=== PATIENT | female | born 1970 ===

== ENCOUNTER 2021-08-17 09:37 | Outpatient (CLI) | payer OTHER | END 2021-08-17 12:10 | disposition home or self-care (01) | LOC: SONOGRAMA 09:37 | PROVIDERS: ATTEND Pathology Anatomic Pathology & Clinical Pathology | DX: E04.2 Nontoxic multinodular goiter (principal) ==

== ENCOUNTER 2022-08-06 07:52 | Outpatient (CLI) | payer OTHER | END 2022-08-06 07:55 | disposition home or self-care (01) | LOC: SONOGRAMA 07:52 | PROVIDERS: ATTEND Pathology Anatomic Pathology & Clinical Pathology | DX: E04.2 Nontoxic multinodular goiter (principal); D34 Benign neoplasm of thyroid gland; E04.1 Nontoxic single thyroid nodule ==

== ENCOUNTER 2024-05-18 06:36 | Inpatient (IN) | payer OTHER ==
[~2024-05-18] VITALS: Ht 170.2 cm; Wt 83.9 kg
[~2024-05-18 06:36] MED LIST: ACTOS15 MG PO; CALTRATE 600 +1 EAC1 PO; CLONAZEPAM1 M1 PO; DESMOPRESSIN ACETATE 4 MCG/ML AMPUL IV NR; DESVENLAFAXINE100 MG PO; FARXIGA10 MG PO; PEPCID AC20 MG PO; PROTONIX20 MG PO; VITAMIN D310 MCG/1 M PO; WELLBUTRIN XL150 M1 PO
[2024-05-18] MEDS ORDERED: CLINDAMYCIN PHOSPHATE 150 MG/ML (600mg) IV SCH (13:45)
[2024-05-18] MEDS ORDERED: POVIDONE-IODINE SCRUB 118 ML BOTT TOP ONE (17:54)
[2024-05-18 21:21] LABS: ABG PH 7.343 (7.35-7.45)
[2024-05-18 21:22] LABS: ABG pCO2 49.5 mmHg (35-45); BASE EXCESS -0.1 mmol/l; BICARBONATE 26.3 mmol/l (23-25); SaO2 99.5 %; Tco2 27.8 mmol/l
[2024-05-18 21:23] LABS: allen test SATISFACTORY; o2 100 %; puncture site RADIAL RIGHT
[2024-05-18] MEDS ORDERED: METHYLPREDNISOLONE SOD SUCC 40 MG VIAL IV SCH (21:32)
[2024-05-18] MEDS ORDERED: RACEPINEPHRINE HCL 0.5 ML AMPUL IH SCH (21:35)
[2024-05-18] MEDS ORDERED: LEVALBUTEROL HCL 1.25 MG/3 ML SOLUTION IH SCH (21:38)
[2024-05-18] MEDS ORDERED: METHYLPREDNISOLONE SOD SUCC 40 MG VIAL ONE (22:27)
[2024-05-18] MEDS ORDERED: PROPOFOL 10,000 MCG/ML VIAL IV ONE (23:08)
[2024-05-18 23:12] LABS: HEMATOCRIT 39.8 % (36.0-45.00); HEMOGLOBIN 13.4 g/dL (12.0-15.00); MEAN CORPUSCULAR HEMOGLOBIN 29.4 pg (27.00-32.0); MEAN CORPUSCULAR HGB CONC 33.7 g/dl (32.0-36.0); PLATELET COUNT 193 K/uL (150-450); RED BLOOD COUNT 4.58 M/uL (4.00-6.00)
[2024-05-18] MEDS ORDERED: FAMOTIDINE/PF 20 MG/2 ML VIAL IV PUSH PRN (23:45)
[2024-05-18] MEDS ORDERED: ENALAPRILAT DIHYDRATE 1.25 MG/ML VIAL IV PRN (23:45)
[2024-05-18 23:53] LABS: ALBUMIN 3.4 gm/dL (3.4-5.0); BILIRUBIN TOTAL 1.1 mg/dL (0.3-1.2); CALCIUM 8.3 mg/dL (8.5-10.1); CREATININE SERUM 0.66 mg/dL (0.55-1.02); GFR 92.98; GLOBULINA 3.3 G/DL (2.4-3.5); POTASSIUM 4.09 mEq/L (3.5-5.1); TOTAL PROTEIN 6.7 gm/dL (6.4-8.2)
[2024-05-19] MEDS ORDERED: LEVALBUTEROL HCL 0.63 MG/3 ML SOLUTION IH ONE ×2 (00:14→08:54)
[2024-05-19] MEDS ORDERED: PROPOFOL 10,000 MCG/ML VIAL IV SCH (00:15)
[2024-05-19] MEDS ORDERED: CLINDAMYCIN PHOSPHATE 150 MG/ML (600mg) ONE ×2 (00:17→09:17)
[2024-05-19] MEDS ORDERED: MORPHINE SULFATE 4 MG/ML VIAL IV ONE (00:30)
[2024-05-19] MEDS ORDERED: MORPHINE SULFATE 4 MG/ML VIAL IV SCH (01:00)
[2024-05-19] MEDS ORDERED: CLINDAMYCIN PHOSPHATE 150 MG/ML (600mg) IV SCH (01:00)
[2024-05-19 09:00] LABS: ABG PH 7.404 (7.35-7.45); ABG PO2 110.9 mmHg (80-100); ABG pCO2 42.7 mmHg (35-45); BASE EXCESS 1.1 mmol/l; BICARBONATE 26.1 mmol/l (23-25); SaO2 98.3 %; Tco2 27.4 mmol/l
[2024-05-19 09:03] LABS: allen test SATISFACTORY; o2 50 %; puncture site RADIAL RIGHT
[2024-05-19] MEDS ORDERED: METHYLPREDNISOLONE SOD SUCC 125 MG VIAL ONE (09:17)
[2024-05-19] MEDS ORDERED: FAMOTIDINE/PF 20 MG/2 ML VIAL ONE (09:18)
[2024-05-19] MEDS ORDERED: METHYLPREDNISOLONE SOD SUCC 40 MG VIAL ONE (09:18)
[2024-05-19] MEDS ORDERED: FUROsemide 20 MG/2 ML VIAL IV ONE (09:30)
[2024-05-19] MEDS ORDERED: DEXTROSE 50 % IN WATER 0.5 G/ML DISP.SYRIN IV PRN (11:15)
[2024-05-19] MEDS ORDERED: INSULIN LISPRO 1,000 UNIT/10 ML UNITS SUBCUTANEO PRN (11:15)
[2024-05-19] MEDS ORDERED: FUROsemide 20 MG/2 ML VIAL IV SCH (13:00)
[2024-05-19] MEDS ORDERED: FUROsemide 20 MG/2 ML VIAL ONE (14:09)
[2024-05-19 14:22] LABS: HEMATOCRIT 39.4 % (36.0-45.00); HEMOGLOBIN 13.4 g/dL (12.0-15.00); MEAN CELL VOLUME 85.3 fL (80.00-100.00); PLATELET COUNT 191 K/uL (150-450); RED BLOOD COUNT 4.62 M/uL (4.00-6.00); RED CELL DISTRIBUTION WIDTH 13.5 % (11.5-14.5)
[2024-05-19 14:35] LABS: CALCIUM 8.6 mg/dL (8.5-10.1); CREATININE SERUM 0.56 mg/dL (0.55-1.02); GFR 112.39; PHOSPHOROUS 2.4 mg/dL (2.5-4.9); POTASSIUM 3.65 mEq/L (3.5-5.1)
[2024-05-19] MEDS ORDERED: RINGERS SOLUTION,LACTATED 1,000 ML IV SCH (18:30)
[2024-05-20] MEDS ORDERED: PROPOFOL 100 ML IV SCH (00:15)
[2024-05-20 06:24] LABS: HEMATOCRIT 37.8 % (36.0-45.00); MEAN CELL VOLUME 87.2 fL (80.00-100.00); MEAN CORPUSCULAR HGB CONC 34.4 g/dl (32.0-36.0); PLATELET COUNT 172 K/uL (150-450); RED BLOOD COUNT 4.33 M/uL (4.00-6.00); RED CELL DISTRIBUTION WIDTH 13.3 % (11.5-14.5)
[2024-05-20 06:58] LABS: CALCIUM 8.6 mg/dL (8.5-10.1); CREATININE SERUM 0.55 mg/dL (0.55-1.02); GFR 114.75; POTASSIUM 3.52 mEq/L (3.5-5.1)
[2024-05-20 08:45] LABS: ABG PH 7.539 (7.35-7.45); ABG pCO2 29.8 mmHg (35-45); BASE EXCESS 3.2 mmol/l; BICARBONATE 24.8 mmol/l (23-25); SaO2 99.8 %
[2024-05-20 08:46] LABS: Tco2 25.7 mmol/l; allen test SATISFACTORY; o2 40 %; puncture site RADIAL LEFT
[2024-05-20] MEDS ORDERED: CHLORHEXIDINE GLUCONATE 120 ML BOTTLE TOP ONE (09:07)
[2024-05-20 10:21] LABS: ABG PH 7.436 (7.35-7.45); ABG PO2 152.7 mmHg (80-100); ABG pCO2 42.5 mmHg (35-45); BASE EXCESS 3.3 mmol/l; BICARBONATE 27.9 mmol/l (23-25); SaO2 99.4 %; Tco2 29.2 mmol/l; o2 40 %
[2024-05-20 10:22] LABS: allen test SATISFACTORY; puncture site RADIAL LEFT
[2024-05-20] MEDS ORDERED: CARBOXYMETHYLCELLULOSE SODIUM 1 EACH DROPERETTE OP SCH (17:00)
[2024-05-20] MEDS ORDERED: CHLORHEXIDINE GLUCONATE 15ML BRUSH KIT MM SCH (17:00)
[2024-05-20] MEDS ORDERED: FLUTICASONE PROPIONATE 50 MCG SPRAY NASAL SCH (17:00)
[2024-05-20] MEDS ORDERED: SODIUM CHLORIDE 20 ML SPRAY NASAL SCH (17:00)
[2024-05-21 13:01] LABS: ABG PH 7.475 (7.35-7.45); ABG PO2 127.7 mmHg (80-100); ABG pCO2 33.3 mmHg (35-45); BASE EXCESS 1.1 mmol/l; SaO2 99.1 %
[2024-05-21 13:03] LABS: o2 40 %
[2024-05-21] MEDS ORDERED: OXYMETAZOLINE HCL 15 ML BOTTLE NASAL ONE (13:07)
[2024-05-22] MEDS ORDERED: LEVALBUTEROL HCL 1.25 MG/3 ML SOLUTION IH SCH (12:00)
[2024-05-22] MEDS ORDERED: METHYLPREDNISOLONE SOD SUCC 40 MG VIAL IV SCH (21:00)
[2024-05-23 12:29] LABS: HEMATOCRIT 40.9 % (36.0-45.00); HEMOGLOBIN 13.8 g/dL (12.0-15.00); MEAN CELL VOLUME 88.2 fL (80.00-100.00); MEAN CORPUSCULAR HEMOGLOBIN 29.8 pg (27.00-32.0); MEAN CORPUSCULAR HGB CONC 33.8 g/dl (32.0-36.0); PLATELET COUNT 268 K/uL (150-450); RED BLOOD COUNT 4.63 M/uL (4.00-6.00)
[2024-05-23 12:49] LABS: ALBUMIN 3.5 gm/dL (3.4-5.0); BILIRUBIN TOTAL 0.79 mg/dL (0.3-1.2); CALCIUM 9.9 mg/dL (8.5-10.1); CREATININE SERUM 0.51 mg/dL (0.55-1.02); GFR 125.2; GLOBULINA 3.9 G/DL (2.4-3.5); POTASSIUM 4.21 mEq/L (3.5-5.1); TOTAL PROTEIN 7.4 gm/dL (6.4-8.2)
== END 2024-05-25 15:06 | disposition home or self-care (01) | DRG 907 ==
LOC: CIR.AMB 06:36 → ICU 21:27 → O/R 21:27 → ICU 05-19 14:32 → SURG 05-23 18:38
PROVIDERS: Anesthesiology Pain Medicine; Internal Medicine; ADMIT Surgery; ATTEND Surgery
PROC: 5A1935Z Respiratory Ventilation, Less than 24 Consecutive Hours (ICD-10-PCS; 2024-05-18)
PROC: 0WJ60ZZ Inspection of Neck, Open Approach (ICD-10-PCS; principal; 2024-05-18 19:00)
PROC: B24BYZZ Ultrasonography of Heart with Aorta using Other Contrast (ICD-10-PCS; 2024-05-19)
DX: E89.820 Postprocedural hematoma of an endocrine system organ or structure following an endocrine system procedure (principal); J96.90 Respiratory failure, unspecified, unspecified whether with hypoxia or hypercapnia; J81.1 Chronic pulmonary edema; E04.2 Nontoxic multinodular goiter; E66.9 Obesity, unspecified; S10.93XA Contusion of unspecified part of neck, initial encounter

== ENCOUNTER 2025-05-31 08:15 | Inpatient (IN) | payer OTHER ==
[~2025-05-31] VITALS: Ht 170.2 cm; Wt 81.6 kg
[~2025-05-31 08:15] MED LIST changes: -DESMOPRESSIN ACETATE 4 MCG/ML AMPUL IV NR
[2025-05-31] MEDS ORDERED: LIPITOR40 M1 PO (10:07)
[2025-05-31] MEDS ORDERED: MONTELUKAST SODI4 M1 (10:09)
[2025-05-31] MEDS ORDERED: AZELASTINE HCL6 ML (10:09)
[2025-05-31 10:24] LABS: BASO % 0.4 % (0.1-1.2); EOS # 0.15 (0.04-0.54); EOS % 2.0 % (0.7-7.0); LYMPH # 1.51 (1.18-3.74); LYMPH % 20.4 % (19.3-53.1); MEAN PLATELET VOLUME 11.50 fl (9.4-12.4); MONO # 0.36 (0.24-0.82); MONO % 4.9 % (4.7-12.5); NEUT # 5.34 (1.56-6.13); NEUT % 72.2 % (34.0-71.1); RED CELL DISTRIBUTION WIDTH 12.6 % (11.6-14.4)
[2025-05-31 10:25] LABS: URINE APPEARANCE Clear; URINE BILIRRUBIN Negative (NEGATIVE); URINE BLOOD Negative; URINE COLOR Yellow; URINE KETONE Negative (NEGATIVE); URINE LEUKOCYTE Negative; URINE NITRATE Negative; URINE PROTEIN Negative (NEGATIVE); URINE UROBILINOGEN 0.2 E.U./dl
[2025-05-31 10:28] VITALS: BP 134/85
[2025-05-31 10:30] LABS: URINE BACTERIA 8.3 uL (0.0-1933); URINE EPITHELIAL CELLS 7.6 uL (0.0-38.8); URINE WBC 6.9 uL (0.0-23.2)
[2025-05-31 10:40] LABS: URINE CAST 0.00 uL (0.0-1.40); URINE GLUCOSE >=1000 MG/DL (NEGATIVE); URINE RBC 0.5 uL (0.0-20.8)
[2025-05-31 11:06] LABS: RH POSITIVE
[2025-05-31 11:20] LABS: ALT/SGPT 36.0 U/L (12-78); AST/SGOT 15.0 U/L (15-37); BILIRUBIN TOTAL 0.61 mg/dL (0.3-1.2); BUN CREA RATIO 29.0 (7.0-25.0); CREATININE SERUM 0.49 mg/dL (0.55-1.02); GFR 130.64; GLOBULINA 3.7 G/DL (2.4-3.5); GLUCOSE FASTING 128.0 mg/dL (65-100); OSMOLALITY SERUM 283.0 MOSM/KG (275-295)
[2025-05-31 11:55] LABS: INR 1.05
[2025-06-07] MEDS ORDERED: DESMOPRESSIN ACETATE 40 MCG/10 ML ML IV SCH (06:00)
[2025-06-07] MEDS ORDERED: CEFAZOLIN SODIUM 1,000 MG VIAL ONE (07:56)
[2025-06-07] MEDS ORDERED: DEXAMETHASONE SODIUM PHOSPHATE 4 MG/ML VIAL IV ONE (12:30)
[2025-06-07] MEDS ORDERED: ONDANSETRON HCL 2 MG/ML VIAL IV PRN (17:15)
[2025-06-07] MEDS ORDERED: ENALAPRILAT DIHYDRATE 1.25 MG/ML VIAL IV PRN (17:15)
[2025-06-07] MEDS ORDERED: hydrALAZINE HCL 20 MG VIAL IV ONE (17:30)
[2025-06-07] MEDS ORDERED: MORPHINE SULFATE 2 MG/ML CARTRIDGE IV ONE (19:25)
[2025-06-07] MEDS ORDERED: PANTOPRAZOLE SODIUM 40 MG/VIAL VIAL IV PUSH SCH (21:00)
[2025-06-07] MEDS ORDERED: Calcium Carbonate 1 TAB TABLET PO SCH (21:00)
[2025-06-07 22:20] VITALS: BP 149/87; O2SAT 96
[2025-06-08 00:21] VITALS: BP 149/82; O2SAT 95
[2025-06-08] MEDS ORDERED: TRAMADOL HCL 50 MG TABLET PO SCH (01:00)
[2025-06-08] MEDS ORDERED: ACETAMINOPHEN 500 MG GEL..CAP PO SCH (01:00)
[2025-06-08 08:00] VITALS: BP 130/76; O2SAT 96
[2025-06-08] MEDS ORDERED: BUPROPION HCL 150 MG TABLET.SA PO SCH (09:00)
[2025-06-08] MEDS ORDERED: LEVOTHYROXINE SODIUM 175 MCG TABLET PO NR (10:15)
[2025-06-08] MEDS ORDERED: OXYMETAZOLINE HCL 15 ML NASAL DROPS NASAL NR (13:20)
[2025-06-08] MEDS ORDERED: BENZONATATE 100 MG CAPSULE PO NR (13:20)
[2025-06-08] MEDS ORDERED: FLUTICASONE PROPIONATE 50 MCG SPRAY NASAL NR (13:20)
[2025-06-08] MEDS ORDERED: GUAIFENESIN 200 MG/10 ML BLIST.PACK PO NR (13:20)
[2025-06-08] MEDS ORDERED: CETIRIZINE HCL 5 MG/5 ML ML PO NR (13:20)
[2025-06-08] MEDS ORDERED: CYCLOBENZAPRINE HCL 5 MG TABLET PO SCH (17:00)
[2025-06-08] MEDS ORDERED: CLONAZEPAM 1 MG TABLET PO SCH (20:00)
[2025-06-09] MEDS ORDERED: LEVOTHYROXINE SODIUM 175 MCG TABLET PO SCH (06:00)
== END 2025-06-08 14:55 | disposition home or self-care (01) | DRG 627 ==
LOC: O/R 06-07 06:33 → SURH 06-07 06:33
PROVIDERS: ADMIT Surgery; ATTEND Surgery
PROC: 0GTH0ZZ Resection of Right Thyroid Gland Lobe, Open Approach (ICD-10-PCS; 2025-06-07)
PROC: 0GTG0ZZ Resection of Left Thyroid Gland Lobe, Open Approach (ICD-10-PCS; principal; 2025-06-07 07:00)
DX: E04.2 Nontoxic multinodular goiter (principal)